=== PATIENT | female | born 1945 | race Caucasian/White ===

== ENCOUNTER 2019-02-19 12:09 | Inpatient (IN) ==
[2019-02-19] MEDS ORDERED: Morphine Sulfate 2 MG/ML SYRINGE IVP ONE (13:13)
--- NOTE | 2019-02-19 13:14 | Emergency Department Note ---
Disposition Clinical Impression: Hypokalemia, Hypomagnesemia Fracture of distal end of right tibia Qualifiers: Encounter type: initial encounter Fracture type: closed Fracture alignment: nondisplaced Qualified Code(s): S82.874A - Nondisplaced pilon fracture of right tibia, initial encounter for closed fracture Disposition: Admitted As Inpatient Condition: Fair Time of Disposition: 13:00 Extremity Problem HPI - General Chief complaint: ED Extremity Problem,Nontraumatic Stated complaint: RLE swelling, sent from [facility] Time Seen by Provider: 02/19/19 12:23 Source: family Limitations: other Nursing Notes Reviewed: Yes Vital Signs Reviewed: Yes - History of Present Illness HPI Narrative: 73-year-old female was sent to the emergency department with concern for right lower 70 pain. Patient had swelling and pain over her right lower extremity today. She saw her oncologist Dr. Rios, who sent her into the emergency department. Patient currently is on xarelto. She does have atrial fibrillation and has breast cancer which is in remission. She is never had a clot before. R eports that the right lower extremity is chronically deformed. No recent trauma to it per her report. Pain Scale: 0 - Related Data Home Medications Medication Instructions Recorded Confirmed Amlodipine [Amlodipine Besylate] 10 mg PO DAILY 03/19/15 02/19/19 Metoprolol [Lopressor] 12.5 mg PO BID 03/19/15 02/19/19 Multivit-Min/FA/Lycopen/Lutein 1 each PO DAILY 03/19/15 02/19/19 [Centrum Silver Tablet] Apixaban [Eliquis] 5 mg PO BID 12/06/16 02/19/19 Calcium Carbonate/Vitamin D3 1,250 each PO DAILY 12/24/16 02/19/19 [Calcium 500 mg Chewable Tablet] Phenytoin ER [Dilantin ER] 100 mg PO BID 05/26/17 02/19/19 Acetaminophen [Tylenol] 1,000 mg PO Q6HR PRN 09/07/17 02/19/19 Previous Rx's Medication Instructions Recorded Anastrozole [Arimidex] 1 mg PO DAILY #30 tablet 05/31/18 Allergies Allergy/AdvReac Type Severity Reaction Status Date / Time acetaminophen [From Vicodin] Allergy Rash Verified 02/19/19 12:13 aspirin Allergy Rash Verified 02/19/19 12:13 famotidine Allergy Rash Verified 02/19/19 12:13 hydrocodone [From Vicodin] Allergy Rash Verified 02/19/19 12:13 meperidine [From Demerol] Allergy Rash Verified 02/19/19 12:13 pantoprazole Allergy Rash Verified 02/19/19 12:13 tramadol Allergy Rash Verified 02/19/19 12:13 letrozole [From Femara] AdvReac Drowsy Verified 02/19/19 12:13 All systems ED: reviewed and negative except as stated. Review of Systems: As Per HPI Constitutional: Denies: fever Cardiovascular: Denies: chest pain Respiratory: Denies: dyspnea Gastrointestinal: Denies: abdominal pain Musculoskeletal: Reports: other (Right ankle and right lower extremity pain) Neurological: Denies: numbness, paresthesias Past Medical History - Past Medical History Attestation: Yes The following information was validated with the patient. Medical history: Reports: atrial fibrillation, cancer, CVA, hypertension, seizures Psychiatric history: Reports: no psych history - Social History Smoking Status: Former smoker Smokeless Tobacco Status: No Alcohol use: Reports: none Drug use: Reports: none Physical Exam - General Limitations: other General appearance: alert - Head Head exam: normocephalic - Eye Eye exam: Present: EOMI - ENT ENT exam: mucous membranes moist - Neck Neck exam: Present: trachea midline - Chest Chest inspection: Present: symmetric chest wall rise - Respiratory Respiratory exam: Present: normal lung sounds bilaterally. Absent: respiratory distress, accessory muscle use - Cardiovascular Cardiovascular exam: Present: regular rate, irregular rhythm - Abdominal Exam Abdominal exam: Present: soft, Non-Tender. Absent: distention, guarding, ezekiel ound, rigidity - Extremities Exam Extremities exam: Present: other (Right lower extremity appears deformed at the ankle, inverted, tenderness throughout palpation of the entire extremity. Pulses by Doppler. Good cap refill) Course Vital Signs Temperature 97.7 F 02/19/19 12:11 Pulse Rate 100 02/19/19 12:11 Respiratory Rate 16 02/19/19 12:11 Blood Pressure 170/80 02/19/19 12:11 O2 Sat by Pulse Oximetry 95 02/19/19 12:11 Temperature 97.9 F 02/19/19 20:16 Pulse Rate 110 02/19/19 20:16 Respiratory Rate 18 02/19/19 20:16 Blood Pressure 151/90 02/19/19 20:16 O2 Sat by Pulse Oximetry 96 02/19/19 20:16 Oxygen Delivery Oxygen Delivery Room Air Extremity Problem, Nontraumati - [facility] Narrative Medical decision making narrative: 72-year-old female presents emergency Department concern for right lower extremity swelling and pain. Patient has pulses that are obtainable by Doppler in her right lower extremity. There is a chronic ankle deformity right lower extremity around the ankle site. Obtaining plain films. Patient was in atrial fibrillation with RVR in the 90s to 140s. Obtain CT angiogram of the chest. Takes metoprolol. Patient was given 5 of metoprolol here in the emergency department. This helped out a heart rate. Patient had evidence of distal tibial fracture as well as anterior subluxation of her ankle. I spoke with our material preparation worker who stated that he he would follow p atient on floor. He stated this point the ankle and his current position as the deformity and the subluxation is most likely chronic. CT angiogram that was obtain I reveal any evidence of pulmonary embolism. Patient stable at time of admission. She was critically hypokalemic and we started replacement of 40 mEq of potassium. We also replenished the magnesium. Femur X-Ray 02/19/19 13:09 IMPRESSION: 1. Probable joint effusion. 2. No acute osseous abnormality on radiographs of the right femur. 3. Bones appear osteoporotic. 4. Mild osteoarthritis right hip and knee joints. Follow-up imaging recommended if pain persists or worsens following conservative management. D/ / Bob Gerard / Bob Gerard Interpreting Provider: Bob Gerard Foot X-Ray 02/19/19 13:09 IMPRESSION: 1. Incidentally noted is essentially nondisplaced fracture across the tibial malleolus. Correlate with radiographs right lower leg report. 2. Osteoporosis. 3. Technically limited study because of difficulty positioning the patient demonstrating no definite acute osseous abnormality of the right foot. Follow-up imaging recommended if pain persists or worsens following conservative management. D/ / Bob Gerard / Bob Gerard Interpreting Provider: Bob Gerard Pelvis X-Ray 02/19/19 13:09 IMPRESSION: 1. No acute abnormality involving the pelvis. 2. Bilateral osteoarthritis right greater than left. D/ / Mark Balderas MD / Mark Balderas MD Interpreting Provider: Mark Balderas MD Tibia/Fibula X-Ray 02/19/19 13:09 IMPRESSION: 1. Acute traumatic minimally displaced fracture of the anterior aspect of the distal tibia. I would recommend dedicated right ankle radiographs for further evaluation. D/ / Mark Balderas MD / Mark Balderas MD Interpreting Provider: Mark Balderas MD Ankle X-Ray 02/19/19 14:18 IMPRESSION: 1. Subtle nondisplaced oblique fracture of the distal right tibial metaphysis is somewhat obscured by the osteopenia. 2. Anterior subluxation of the tibiotalar joint. 3. Consider CT scan of the ankle for more detailed evaluation. D/ / Missael Smith MD / Missael Smith MD Interpreting Provider: Missael Smith MD Chest CTA 02/19/19 14:27 IMPRESSION: No evidence of pulmonary embolism or acute pulmonary abnormality. Changes of emphysema and mild interstitial lung disease. No active pleural disease. No evidence of CHF or pneumonia. RECOMMENDATIONS: Thyroid ultrasound. D/ / 02/19/2019 16:19:32 Rita Andrews MD / [email or web address] Interpreting Provider: Rita Andrews MD - Lab Data Result diagrams: 02/19/19 14:56 02/19/19 14:58 Lab Results 02/19/19 02/19/19 02/19/19 Range/Units 14:56 14:56 14:58 WBC 6.6 (4.3-11.1) K/mcL RBC 3.42 L (3.82-4.97) M/mcL Hgb 10.6 L D (11.5-15.4) g/dL Hct 33.2 L (35.3-44.9) % MCV 97.1 (83.0-100.0) fL MCH 31.0 (28.0-33.3) pg MCHC 31.9 (31.6-35.5) g/dL RDW 13.1 (11.5-14.5) % Plt Count 238 (140-400) K/mcL MPV 9.9 (9.4-12.4) fL Immature Gran % 0.2 (0-4) % Seg Neutrophils % 74.3 % Lymphocytes % 15.6 % Monocytes % 8.9 % Eosinophils % 0.5 % Basophils % 0.5 % Neutrophils # 4.9 (1.6-8.9) K/mcL Lymphocytes # 1.0 (0.6-4.6) K/mcL Monocytes # 0.6 (0.0-1.3) K/mcL Eosinophils # 0.0 (0.0-0.6) K/mcL Basophils # 0.0 (0.0-0.2) K/mcL Sodium 143 (136-145) mEq/L Potassium 2.4 L* D (3.5-5.1) mEq/L Chloride 117 H (98-107) mEq/L Carbon Dioxide 20 L (23-29) mEq/L BUN 8 (8-23) mg/dL Creatinine 0.26 L (0.60-1.20) mg/dL Est GFR ( Amer) > 60 (> 60) Est GFR (Non-Af Amer) > 60 (> 60) BUN/Creatinine Ratio 31 H (6-26) Glucose 89 (70-105) mg/dL Calculated Osmolality 294 (280-300) Lactic Acid (0.5-2.2) mmol/L Calcium 6.3 L (8.6-10.3) mg/dL Phosphorus 2.1 L (2.7-4.5) mg/dL Magnesium 1.2 L (1.6-2.6) mg/dL Troponin I < 0.03 (< 0.04) ng/mL B-Natriuretic Peptide (Less than 100) pg/mL 25-OH Vitamin D Total (30-80) ng/mL TSH 0.494 (0.340-5.600) mcIU/mL PTH Intact 23.5 (10.0-65.0) pg/ml Urine Color (Yellow) Urine Clarity (Clear) Urine pH (5.0-8.0) pH Units Ur Specific [place] (1.010-1.025) Urine Protein (Neg-Trace) mg/dL Urine Glucose (UA) (Normal) mg/dL Urine Ketones (Negative) mg/dL Urine Blood (Negative) Urine Nitrite (Negative) Urine Bilirubin (Negative) Urine Urobilinogen (Normal) mg/dL Ur Leukocyte Esterase (Negative) Urine Microscopic RBC (0-3) per hpf Urine Microscopic WBC (0-3) per hpf Ur Squamous Epith Cells (None-Few) per lpf Urine Bacteria (None-Few) per hpf Hyaline Casts (None-Few) per lpf Ur Culture Indicated? (NO) Phenytoin 3.4 L (10.0-20.0) mcg/mL 02/19/19 02/19/19 02/19/19 Range/Units 14:58 14:58 17:04 WBC (4.3-11.1) K/mcL RBC (3.82-4.97) M/mcL Hgb (11.5-15.4) g/dL Hct (35.3-44.9) % MCV (83.0-100.0) fL MCH (28.0-33.3) pg MCHC (31.6-35.5) g/dL RDW (11.5-14.5) % Plt Count (140-400) K/mcL MPV (9.4-12.4) fL Immature Gran % (0-4) % Seg Neutrophils % % Lymphocytes % % Monocytes % % Eosinophils % % Basophils % % Neutrophils # (1.6-8.9) K/mcL Lymphocytes # (0.6-4.6) K/mcL Monocytes # (0.0-1.3) K/mcL Eosinophils # (0.0-0.6) K/mcL Basophils # (0.0-0.2) K/mcL Sodium (136-145) mEq/L Potassium (3.5-5.1) mEq/L Chloride (98-107) mEq/L Carbon Dioxide (23-29) mEq/L BUN (8-23) mg/dL Creatinine (0.60-1.20) mg/dL Est GFR ( Amer) (> 60) Est GFR (Non-Af Amer) (> 60) BUN/Creatinine Ratio (6-26) Glucose (70-105) mg/dL Calculated Osmolality (280-300) Lactic Acid 0.7 (0.5-2.2) mmol/L Calcium (8.6-10.3) mg/dL Phosphorus (2.7-4.5) mg/dL Magnesium (1.6-2.6) mg/dL Troponin I (< 0.04) ng/mL B-Natriuretic Peptide 47 (Less than 100) pg/mL 25-OH Vitamin D Total (30-80) ng/mL TSH (0.340-5.600) mcIU/mL PTH Intact (10.0-65.0) pg/ml Urine Color Yellow (Yellow) Urine Clarity Cloudy A (Clear) Urine pH 7.5 (5.0-8.0) pH Units Ur Specific [place] > 1.030 H (1.010-1.025) Urine Protein Trace (Neg-Trace) mg/dL Urine Glucose (UA) Normal (Normal) mg/dL Urine Ketones Negative (Negative) mg/dL Urine Blood Large H (Negative) Urine Nitrite Negative (Negative) Urine Bilirubin Negative (Negative) Urine Urobilinogen Normal (Normal) mg/dL Ur Leukocyte Esterase Large H (Negative) Urine Microscopic RBC TNTC H (0-3) per hpf Urine Microscopic WBC TNTC H (0-3) per hpf Ur Squamous Epith Cells Moderate H (None-Few) per lpf Urine Bacteria Many H (None-Few) per hpf Hyaline Casts None Seen (None-Few) per lpf Ur Culture Indicated? YES A (NO) Phenytoin (10.0-20.0) mcg/mL 02/19/19 Range/Units 17:06 WBC (4.3-11.1) K/mcL RBC (3.82-4.97) M/mcL Hgb (11.5-15.4) g/dL Hct (35.3-44.9) % MCV (83.0-100.0) fL MCH (28.0-33.3) pg MCHC (31.6-35.5) g/dL RDW (11.5-14.5) % Plt Count (140-400) K/mcL MPV (9.4-12.4) fL Immature Gran % (0-4) % Seg Neutrophils % % Lymphocytes % % Monocytes % % Eosinophils % % Basophils % % Neutrophils # (1.6-8.9) K/mcL Lymphocytes # (0.6-4.6) K/mcL Monocytes # (0.0-1.3) K/mcL Eosinophils # (0.0-0.6) K/mcL Basophils # (0.0-0.2) K/mcL Sodium (136-145) mEq/L Potassium (3.5-5.1) mEq/L Chloride (98-107) mEq/L Carbon Dioxide (23-29) mEq/L BUN (8-23) mg/dL Creatinine (0.60-1.20) mg/dL Est GFR ( Amer) (> 60) Est GFR (Non-Af Amer) (> 60) BUN/Creatinine Ratio (6-26) Glucose (70-105) mg/dL Calculated Osmolality (280-300) Lactic Acid (0.5-2.2) mmol/L Calcium (8.6-10.3) mg/dL Phosphorus (2.7-4.5) mg/dL Magnesium (1.6-2.6) mg/dL Troponin I (< 0.04) ng/mL B-Natriuretic Peptide (Less than 100) pg/mL 25-OH Vitamin D Total 24 L (30-80) ng/mL TSH (0.340-5.600) mcIU/mL PTH Intact (10.0-65.0) pg/ml Urine Color (Yellow) Urine Clarity (Clear) Urine pH (5.0-8.0) pH Units Ur Specific [place] (1.010-1.025) Urine Protein (Neg-Trace) mg/dL Urine Glucose (UA) (Normal) mg/dL Urine Ketones (Negative) mg/dL Urine Blood (Negative) Urine Nitrite (Negative) Urine Bilirubin (Negative) Urine Urobilinogen (Normal) mg/dL Ur Leukocyte Esterase (Negative) Urine Microscopic RBC (0-3) per hpf Urine Microscopic WBC (0-3) per hpf Ur Squamous Epith Cells (None-Few) per lpf Urine Bacteria (None-Few) per hpf Hyaline Casts (None-Few) per lpf Ur Culture Indicated? (NO) Phenytoin (10.0-20.0) mcg/mL - EKG Data EKG attestation: Yes I reviewed and interpreted this EKG. EKG results narrative: 13:40 Heart rate 143 bpm, IA 133 ms, QRS duration 71 ms, QT 300 ms, left axis deviation. Atrial fibrillation with no ischemic ST changes. 14:40 Heart rate 170 bpm, no P waves, left axis deviation Atrial fibrillation with rate of 117. No ischemic ST changes.
[2019-02-19] MEDS ORDERED: 0.9 % Sodium Chloride 500 ML IVC STA (13:44)
--- NOTE | 2019-02-19 14:06 | Emergency Department Note ---
Disposition Clinical Impression: Hypokalemia, Hypomagnesemia Fracture of distal end of right tibia Qualifiers: Encounter type: initial encounter Fracture type: closed Fracture morphology: pilon Fracture alignment: nondisplaced Qualified Code(s): S82.874A - Nondisplaced pilon fracture of right tibia, initial encounter for closed fracture Disposition: Admitted As Inpatient Condition: Fair Referrals: NONE,PCP [Non-Partnered Physician] - Forms: ED Satisfaction Letter Time of Disposition: 17:00 General Adult HPI - General Chief complaint: ED Extremity Problem,Nontraumatic Stated complaint: RLE swelling, sent from [facility] Time Seen by Provider: 02/19/19 12:23 Source: family Limitations: other Nursing Notes Reviewed: Yes Vital Signs Reviewed: Yes - History of Present Illness Pain Scale: 0 - Related Data Home Medications Medication Instructions Recorded Confirmed Amlodipine [Amlodipine Besylate] 10 mg PO DAILY 03/19/15 02/19/19 Metoprolol [Lopressor] 12.5 mg PO BID 03/19/15 02/19/19 Multivit-Min/FA/Lycopen/Lutein 1 each PO DAILY 03/19/15 02/19/19 [Centrum Silver Tablet] Apixaban [Eliquis] 5 mg PO BID 12/06/16 02/19/19 Calcium Carbonate/Vitamin D3 1,250 each PO DAILY 12/24/16 02/19/19 [Calcium 500 mg Chewable Tablet] Phenytoin ER [Dilantin ER] 100 mg PO BID 05/26/17 02/19/19 Acetaminophen [Tylenol] 1,000 mg PO Q6HR PRN 09/07/17 02/19/19 Previous Rx's Medication Instructions Recorded Anastrozole [Arimidex] 1 mg PO DAILY #30 tablet 05/31/18 Allergies Allergy/AdvReac Type Severity Reaction Status Date / Time acetaminophen [From Vicodin] Allergy Rash Verified 02/19/19 12:13 aspirin Allergy Rash Verified 02/19/19 12:13 famotidine Allergy Rash Verified 02/19/19 12:13 hydrocodone [From Vicodin] Allergy Rash Verified 02/19/19 12:13 meperidine [From Demerol] Allergy Rash Verified 02/19/19 12:13 pantoprazole Allergy Rash Verified 02/19/19 12:13 tramadol Allergy Rash Verified 02/19/19 12:13 letrozole [From Femara] AdvReac Drowsy Verified 02/19/19 12:13 Constitutional: Denies: fever Cardiovascular: Denies: chest pain Respiratory: Denies: dyspnea Gastrointestinal: Denies: abdominal pain Musculoskeletal: Reports: other (Right ankle and right lower extremity pain) Neurological: Denies: numbness, paresthesias Past Medical History - Past Medical History Medical history: Reports: atrial fibrillation, cancer, CVA, hypertension, seizures Psychiatric history: Reports: no psych history - Social History Smoking Status: Former smoker Smokeless Tobacco Status: No Alcohol use: Reports: none Drug use: Reports: none Physical Exam - General Limitations: other General appearance: alert Course Vital Signs Temperature 97.7 F 02/19/19 12:11 Pulse Rate 100 02/19/19 12:11 Respiratory Rate 16 02/19/19 12:11 Blood Pressure 170/80 02/19/19 12:11 O2 Sat by Pulse Oximetry 95 02/19/19 12:11 Temperature 97.7 F 02/19/19 12:11 Pulse Rate 102 02/19/19 17:03 Respiratory Rate 17 02/19/19 17:03 Blood Pressure 154/89 02/19/19 17:03 O2 Sat by Pulse Oximetry 94 02/19/19 17:03 Oxygen Delivery Oxygen Delivery Room Air Medical Decision Making - Lab Data Result diagrams: 02/19/19 14:56 02/19/19 14:58 Lab Results 02/19/19 02/19/19 02/19/19 Range/Units 14:56 14:58 14:58 WBC 6.6 (4.3-11.1) K/mcL RBC 3.42 L (3.82-4.97) M/mcL Hgb 10.6 L D (11.5-15.4) g/dL Hct 33.2 L (35.3-44.9) % MCV 97.1 (83.0-100.0) fL MCH 31.0 (28.0-33.3) pg MCHC 31.9 (31.6-35.5) g/dL RDW 13.1 (11.5-14.5) % Plt Count 238 (140-400) K/mcL MPV 9.9 (9.4-12.4) fL Immature Gran % 0.2 (0-4) % Seg Neutrophils % 74.3 % Lymphocytes % 15.6 % Monocytes % 8.9 % Eosinophils % 0.5 % Basophils % 0.5 % Neutrophils # 4.9 (1.6-8.9) K/mcL Lymphocytes # 1.0 (0.6-4.6) K/mcL Monocytes # 0.6 (0.0-1.3) K/mcL Eosinophils # 0.0 (0.0-0.6) K/mcL Basophils # 0.0 (0.0-0.2) K/mcL Sodium 143 (136-145) mEq/L Potassium 2.4 L* D (3.5-5.1) mEq/L Chloride 117 H (98-107) mEq/L Carbon Dioxide 20 L (23-29) mEq/L BUN 8 (8-23) mg/dL Creatinine 0.26 L (0.60-1.20) mg/dL Est GFR ( Amer) > 60 (> 60) Est GFR (Non-Af Amer) > 60 (> 60) BUN/Creatinine Ratio 31 H (6-26) Glucose 89 (70-105) mg/dL Calculated Osmolality 294 (280-300) Lactic Acid 0.7 (0.5-2.2) mmol/L Calcium 6.3 L (8.6-10.3) mg/dL Magnesium 1.2 L (1.6-2.6) mg/dL Troponin I < 0.03 (< 0.04) ng/mL B-Natriuretic Peptide (Less than 100) pg/mL TSH 0.494 (0.340-5.600) mcIU/mL 02/19/19 Range/Units 14:58 WBC (4.3-11.1) K/mcL RBC (3.82-4.97) M/mcL Hgb (11.5-15.4) g/dL Hct (35.3-44.9) % MCV (83.0-100.0) fL MCH (28.0-33.3) pg MCHC (31.6-35.5) g/dL RDW (11.5-14.5) % Plt Count (140-400) K/mcL MPV (9.4-12.4) fL Immature Gran % (0-4) % Seg Neutrophils % % Lymphocytes % % Monocytes % % Eosinophils % % Basophils % % Neutrophils # (1.6-8.9) K/mcL Lymphocytes # (0.6-4.6) K/mcL Monocytes # (0.0-1.3) K/mcL Eosinophils # (0.0-0.6) K/mcL Basophils # (0.0-0.2) K/mcL Sodium (136-145) mEq/L Potassium (3.5-5.1) mEq/L Chloride (98-107) mEq/L Carbon Dioxide (23-29) mEq/L BUN (8-23) mg/dL Creatinine (0.60-1.20) mg/dL Est GFR ( Amer) (> 60) Est GFR (Non-Af Amer) (> 60) BUN/Creatinine Ratio (6-26) Glucose (70-105) mg/dL Calculated Osmolality (280-300) Lactic Acid (0.5-2.2) mmol/L Calcium (8.6-10.3) mg/dL Magnesium (1.6-2.6) mg/dL Troponin I (< 0.04) ng/mL B-Natriuretic Peptide 47 (Less than 100) pg/mL TSH (0.340-5.600) mcIU/mL Critical Care Time Critical Care Time: Yes Total Critical Care Time: 35 Attestation: Critical care performed: Time is exclusive of separately billable procedures. Time includes: direct patient care, patient reassessment, coordination of patient care, interpretation of data (laboratory data, radiology data, and respiratory data), review of patient's medical records, medical consultation and documentation of patient care. Procedures included in critical care time: Procedures excluded from critical care time: Attestation Statement - Attestation Attestation: I examined this patient and my medical decision-making was reviewed with the [facility] Physician. I agree with the documented findings, disposition and treatment plan as described except to the extent set forth below. Patient to the ED with a chief complaint of right leg pain. Patient was sent over from her cancer doctor today. She was there for a 6 month follow-up of visit. Patient has had pain and swelling for 3 days per her . She is nonverbal from a prior stroke. He states that a new physical therapist was trying to stand her today and he thinks that they injured her leg. On exam she has tenderness and swelling of the right foot. Swelling extends up into the young. Able to Doppler pulses in the foot. Tachycardic. Plan. Pain control and imaging. Patient does not have a distal tibia fracture. Placed in a splint by business technology architect. Hypokalemic. Hypomagnesemia. Replacing IV. Patient is admitted to medicine. Femur X-Ray 02/19/19 13:09 IMPRESSION: 1. Probable joint effusion. 2. No acute osseous abnormality on radiographs of the right femur. 3. Bones appear osteoporotic. 4. Mild osteoarthritis right hip and knee joints. Follow-up imaging recommended if pain persists or worsens following conservative management. D/ / Bob Gerard / Bob Gerard Interpreting Provider: Bob Gerard Foot X-Ray 02/19/19 13:09 IMPRESSION: 1. Incidentally noted is essentially nondisplaced fracture across the tibial malleolus. Correlate with radiographs right lower leg report. 2. Osteoporosis. 3. Technically limited study because of difficulty positioning the patient demonstrating no definite acute osseous abnormality of the right foot. Follow-up imaging recommended if pain persists or worsens following conservative management. D/ / Bob Gerard / Bob Gerard Interpreting Provider: Bob Gerard Pelvis X-Ray 02/19/19 13:09 IMPRESSION: 1. No acute abnormality involving the pelvis. 2. Bilateral osteoarthritis right greater than left. D/ / Mark Balderas MD / Mark Balderas MD Interpreting Provider: Mark Balderas MD Tibia/Fibula X-Ray 02/19/19 13:09 IMPRESSION: 1. Acute traumatic minimally displaced fracture of the anterior aspect of the distal tibia. I would recommend dedicated right ankle radiographs for further evaluation. D/ / Mark Balderas MD / Mark Balderas MD Interpreting Provider: Mark Balderas MD Ankle X-Ray 02/19/19 14:18 IMPRESSION: 1. Subtle nondisplaced oblique fracture of the distal right tibial metaphysis is somewhat obscured by the osteopenia. 2. Anterior subluxation of the tibiotalar joint. 3. Consider CT scan of the ankle for more detailed evaluation. D/ / Missael Smith MD / Missael Smith MD Interpreting Provider: Missael Smith MD Chest CTA 02/19/19 14:27 IMPRESSION: No evidence of pulmonary embolism or acute pulmonary abnormality. Changes of emphysema and mild interstitial lung disease. No active pleural disease. No evidence of CHF or pneumonia. RECOMMENDATIONS: Thyroid ultrasound. D/ / 02/19/2019 16:19:32 Rita Andrews MD / [email or web address] Interpreting Provider: Rita Andrews MD
[2019-02-19] MEDS ORDERED: Isovue-370 500 ML BOTTLE IVP ONE (14:27)
[2019-02-19 15:17] LABS: Basophils % 0.5 %; Eosinophils % 0.5 %; Hematocrit 33.2 % (35.3-44.9); Hemoglobin 10.6 g/dL (11.5-15.4); Immature Granulocytes % 0.2 % (0-4); Lymphocytes % 15.6 %; Mean Corpuscular HGB Conc 31.9 g/dL (31.6-35.5); Mean Corpuscular Volume 97.1 fL (83.0-100.0); Mean Platelet Volume 9.9 fL (9.4-12.4); Monocytes # 0.6 K/mcL (0.0-1.3); Monocytes % 8.9 %; Neutrophils # 4.9 K/mcL (1.6-8.9); Platelet Count 238 K/mcL (140-400); Red Blood Count 3.42 M/mcL (3.82-4.97); Red Cell Distribution Width 13.1 % (11.5-14.5); Segmented Neutrophils % 74.3 %; White Blood Count 6.6 K/mcL (4.3-11.1)
[2019-02-19] MEDS ORDERED: *HR* Metoprolol 5 MG/5 ML VIAL IVP ONE ×2 (15:20→22:22)
[2019-02-19 15:45] LABS: BUN/Creatinine Ratio 31 (6-26); Blood Urea Nitrogen 8 mg/dL (8-23); Calcium 6.3 mg/dL (8.6-10.3); Carbon Dioxide 20 mEq/L (23-29); Chloride 117 mEq/L (98-107); Glucose 89 mg/dL (70-105); Osmolality,Calculated 294 (280-300); Potassium 2.4 mEq/L (3.5-5.1); Sodium 143 mEq/L (136-145); Troponin I < 0.03 ng/mL (< 0.04); eGFR For African Americans > 60 (> 60); eGFR For Non-African Americans > 60 (> 60)
[2019-02-19] MEDS ORDERED: Potassium Chloride 40 MEQ, Lidocaine 1% 2 ML in 0.9 % Sodium Chloride 500 ML IVPB ONE (15:46)
[2019-02-19 16:08] LABS: Magnesium 1.2 mg/dL (1.6-2.6); Thyroid Stimulating Hormone 0.494 mcIU/mL (0.340-5.600)
[2019-02-19] MEDS ORDERED: Ondansetron ODT 4 MG TAB.RAPDIS SL PRN (17:03)
[2019-02-19] MEDS ORDERED: traMADol 50 MG TABLET PO PRN (17:03)
[2019-02-19] MEDS ORDERED: Naloxone 0.4 MG/ML INJ IVP PRN (17:03)
[2019-02-19] MEDS ORDERED: Calcium Gluconate 1gm/50mL 1 GM/50 ML BAG IVPB ONE (17:09)
[2019-02-19 17:13] LABS: Bilirubin,Urine Negative (Negative); Blood,Urine Large (Negative); Clarity,Urine Cloudy (Clear); Color,Urine Yellow (Yellow); Glucose,Urine (UA) Normal (Normal); Ketones,Urine Negative (Negative); Leukocyte Esterase,Urine Large (Negative); Nitrite,Urine Negative (Negative); PH,Urine 7.5 pH Units (5.0-8.0); Protein,Urine Trace mg/dL (Neg-Trace); Specific Gravity,Urine > 1.030 (1.010-1.025); Urobilinogen,Urine Normal (Normal)
[2019-02-19 17:15] LABS: Bacteria,Urine Many per hpf (None-Few); Hyaline Casts,Urine None Seen per lpf (None-Few); RBC,Urine TNTC per hpf (0-3); Squamous Epithelial Cell,Urine Moderate per lpf (None-Few); WBC,Urine TNTC per hpf (0-3)
[2019-02-19 17:29] LABS: Phenytoin (Dilantin) 3.4 mcg/mL (10.0-20.0)
[2019-02-19] MEDS ORDERED: Ringers Solution, Lactated 1,000 ML IVC SCH (17:30)
--- NOTE | 2019-02-19 17:34 | Internal Med History&Physical ---
Date of Encounter: 02/19/19 Time of Encounter: 17:28 Internal Medicine - H&P: HPI Chief complaint: edema of the right lower extr History of present illness: Ms. De La Fuente is a 73 year old female PMH of A.fib, CVA with expressive aphasia, right hemiplegia, stage 1 grade 1 tubular and invasive carcinoma of the right breasts. ER/DE +, her2/miah -. S/P lumpectomy and sentinel lymph node biopsy 07/02/14 followed by adjuvant XRT. Information obtained from ED documentation, patient with expressive aphasia, and no one was present in her room. I called [phone] but no one answered the phone. Patient was sent to the ED from the oncologist office after the patient was found to have right lower extremity edema. A skeletal survey of the lower extr was done and patient was found to have Acute traumatic minimally displaced fracture of the anterior aspect of the distal tibia. Also patient was found to be on A.fib with RvR, have hypokalemia, hypomagnesemia and hypocalcemia. During my evaluation patient in no distress. Past Med Surg Social Fam HX - Past Medical History Medical history: atrial fibrillation, cancer, CVA, hypertension, seizures Additional medical history: weakness, aphasia r/t CVA, breast cancer Psychiatric history: no psych history - Social History Smoking Status: Former smoker Smokeless Tobacco Status: No Alcohol use: none Drug use: none Internal Medicine - H&P: Meds Amlodipine [Amlodipine Besylate] 10 mg PO DAILY 03/19/15 [History] Metoprolol [Lopressor] 12.5 mg PO BID 03/19/15 [History] Multivit-Min/FA/Lycopen/Lutein [Centrum Silver Tablet] 1 each PO DAILY 03/19/15 [History] Apixaban [Eliquis] 5 mg PO BID 12/06/16 [History] Calcium Carbonate/Vitamin D3 [Calcium 500 mg Chewable Tablet] 1,250 each PO DAILY 12/24/16 [History] Phenytoin ER [Dilantin ER] 100 mg PO BID 05/26/17 [History] Acetaminophen [Tylenol] 1,000 mg PO Q6HR PRN 09/07/17 [History] Anastrozole [Arimidex] 1 mg PO DAILY #30 tablet 05/31/18 [Rx] Allergy/AdvReac Type Severity Reaction Status Date / Time acetaminophen [From Vicodin] Allergy Rash Verified 02/19/19 12:13 aspirin Allergy Rash Verified 02/19/19 12:13 famotidine Allergy Rash Verified 02/19/19 12:13 hydrocodone [From Vicodin] Allergy Rash Verified 02/19/19 12:13 meperidine [From Demerol] Allergy Rash Verified 02/19/19 12:13 pantoprazole Allergy Rash Verified 02/19/19 12:13 tramadol Allergy Rash Verified 02/19/19 12:13 letrozole [From Femara] AdvReac Drowsy Verified 02/19/19 12:13 ROS unobtainable: other (patient with expressive aphasia. ) All Systems PM: A 10-system review of systems was performed and is negative for pertinent findings except as documented above in the HPI. - Constitutional Vitals: Temp Pulse Resp BP Pulse Ox 97.7 F 102 17 154/89 94 02/19/19 12:11 02/19/19 17:03 02/19/19 17:03 02/19/19 17:03 02/19/19 17:03 Exam: Vitals: Reviewed General: Awake, in no distress. Skin: Normal color, no rash, no lesions. HEENT: EOM, pupils equal, round and reactive. Cardiovascular: Irregularly irregular, normal S1 & S2, no rubs, murmurs or gallops. Lungs: CTA b/l, no wheezes or crackles. Abdomen: Soft, non-tender, no rigidity. Extremities: right upper extremity contracted, strength in the right upper and lower extr 2/5. 5/5 in the left upper and lower extr. Neurological: expressive aphasia. Rest of the physical exam is non contributory Internal Med - H&P Results - Labs CBC & Chem 7: 02/19/19 14:56 02/19/19 14:58 Labs: Short CBC 02/19/19 Range/Units 14:56 WBC 6.6 (4.3-11.1) K/mcL Hgb 10.6 L D (11.5-15.4) g/dL Hct 33.2 L (35.3-44.9) % Plt Count 238 (140-400) K/mcL Neutrophils # 4.9 (1.6-8.9) K/mcL BMP 02/19/19 14:58 Sodium 143 Potassium 2.4 L* D Chloride 117 H Carbon Dioxide 20 L BUN 8 Creatinine 0.26 L Glucose 89 Calcium 6.3 L Cardiac Enzymes 02/19/19 Range/Units 14:58 Troponin I < 0.03 (< 0.04) ng/mL Urine 02/19/19 Range/Units 17:04 Urine Color Yellow (Yellow) Urine Clarity Cloudy A (Clear) Urine pH 7.5 (5.0-8.0) pH Units Ur Specific [place] > 1.030 H (1.010-1.025) Urine Protein Trace (Neg-Trace) mg/dL Urine Glucose (UA) Normal (Normal) mg/dL - Impressions ITS Impressions Femur X-Ray 02/19/19 13:09 IMPRESSION: 1. Probable joint effusion. 2. No acute osseous abnormality on radiographs of the right femur. 3. Bones appear osteoporotic. 4. Mild osteoarthritis right hip and knee joints. Follow-up imaging recommended if pain persists or worsens following conservative management. D/ / Bob Gerard / Bob Gerard Interpreting Provider: Bob Gerard Foot X-Ray 02/19/19 13:09 IMPRESSION: 1. Incidentally noted is essentially nondisplaced fracture across the tibial malleolus. Correlate with radiographs right lower leg report. 2. Osteoporosis. 3. Technically limited study because of difficulty positioning the patient demonstrating no definite acute osseous abnormality of the right foot. Follow-up imaging recommended if pain persists or worsens following conservative management. D/ / oBb Gerard / Bob Gerard Interpreting Provider: Bob Gerard Pelvis X-Ray 02/19/19 13:09 IMPRESSION: 1. No acute abnormality involving the pelvis. 2. Bilateral osteoarthritis right greater than left. D/ / Mark Balderas MD / Mark Balderas MD Interpreting Provider: Mark Balderas MD Tibia/Fibula X-Ray 02/19/19 13:09 IMPRESSION: 1. Acute traumatic minimally displaced fracture of the anterior aspect of the distal tibia. I would recommend dedicated right ankle radiographs for further evaluation. D/ / Mark Balderas MD / Mark Balderas MD Interpreting Provider: Mark Balderas MD Ankle X-Ray 02/19/19 14:18 IMPRESSION: 1. Subtle nondisplaced oblique fracture of the distal right tibial metaphysis is somewhat obscured by the osteopenia. 2. Anterior subluxation of the tibiotalar joint. 3. Consider CT scan of the ankle for more detailed evaluation. D/ / Missael Smith MD / Missael Smith MD Interpreting Provider: Missael Smith MD Chest CTA 02/19/19 14:27 IMPRESSION: No evidence of pulmonary embolism or acute pulmonary abnormality. Changes of emphysema and mild interstitial lung disease. No active pleural disease. No evidence of CHF or pneumonia. RECOMMENDATIONS: Thyroid ultrasound. D/ / 02/19/2019 16:19:32 Rita Andrews MD / yumiko Interpreting Provider: Rita Andrews MD - Diagnostic Studies Chest x-ray Status: image reviewed by me (tibial fracture. ) - Assessment and Plan (1) Hypocalcemia Current Visit: Yes Status: Acute (2) CVA (cerebral vascular accident) Current Visit: Yes Status: Chronic Qualifiers: CVA mechanism: unspecified Qualified Code(s): I63.9 - Cerebral infarction, unspecified (3) UTI (urinary tract infection) Current Visit: Yes Status: Acute Qualifiers: Urinary tract infection type: site unspecified Hematuria presence: without hematuria Qualified Code(s): N39.0 - Urinary tract infection, site not specified (4) DVT prophylaxis Current Visit: Yes Status: Chronic (5) Fracture of distal end of right tibia Current Visit: Yes Status: Acute Qualifiers: Encounter type: initial encounter Fracture type: closed Fracture alignment: nondisplaced Qualified Code(s): S82.874A - Nondisplaced pilon fracture of right tibia, initial encounter for closed fracture (6) Hypokalemia Current Visit: Yes Status: Acute (7) Hypomagnesemia Current Visit: Yes Status: Acute (8) Osteoporosis Current Visit: No Status: Chronic Qualifiers: Osteoporosis type: unspecified Presence of current pathological fracture: unspecified Qualified Code(s): M81.0 - Age-related osteoporosis without current pathological fracture - Summary of Assessment and Plan Summary of Assessment and Plan: Ms. De La Fuente is a 73 year old female PMH of A.fib, CVA with expressive aphasia, right hemiplegia, stage 1 grade 1 tubular and invasive carcinoma of the right breasts. ER/DE +, her2/miah -. S/P lumpectomy and sentinel lymph node biopsy 07/02/14 followed by adjuvant XRT. Patient brought to the hospital due to edema of the right lower extr. Assessment: 1. A.fib with RvR 2. Hypomagnesemia 3. Hypokalemia 4. Hypocalcemia 5. Acute traumatic minimally displaced fracture of the distal tibia. 6. Hx of CVA 7. Expressive aphasia 8. UTI (suspected) Plan: Patient found to be on A.fib with RvR on presentation, found to have multiple electrolytes abnormalities - electrolytes being replaced. - repeat BMP, mag and phosp 1 hour post electrolyte replacements - c/w telemetry monitoring - will resume home dose of metoprolol - c/w apixaban for secondary stroke prevention - Trench Pipe Layer Helper consulted, recommendations appreciated - NPO at midnight. - Tylenol 1gm Q6HR PRN for pain control - Lennie D, intact PtH, urine electrolytes ordered - ceftriaxone 1gm/IV daily - patient with mild acidosis. LR @75ml/hr x1 litter ordered - continue home dose of phenytoin - phenytoin level ordered - intermittent pneumatic compression for dvt prophylaxis - Time Spent With Patient Total time spent is greater than 50% in coordination of care (as documented) at patient's floor/unit and/or counseling patient: Greater than 35 minutes (45)
[2019-02-19 18:09] LABS: Phosphorous 2.1 mg/dL (2.7-4.5)
[2019-02-19] MEDS: cefTRIAXone 1,000 MG in Water for inj. (sterile) 10 ML IVP SCH (21:28)
[2019-02-19] MEDS: Apixaban 5 MG TABLET PO SCH (21:29)
[2019-02-19 22:19] LABS: BUN/Creatinine Ratio 22 (6-26); Blood Urea Nitrogen 9 mg/dL (8-23); Calcium 9.1 mg/dL (8.6-10.3); Carbon Dioxide 22 mEq/L (23-29); Chloride 109 mEq/L (98-107); Glucose 113 mg/dL (70-105); Osmolality,Calculated 287 (280-300); Potassium 4.5 mEq/L (3.5-5.1); Sodium 139 mEq/L (136-145); eGFR For African Americans > 60 (> 60); eGFR For Non-African Americans > 60 (> 60)
[2019-02-20] MEDS ORDERED: *HR* Metoprolol 5 MG/5 ML VIAL IVP ONE ×2 (02:26→06:05)
[2019-02-20 03:38] LABS: Basophils % 0.3 %; Eosinophils # 0.1 K/mcL (0.0-0.6); Eosinophils % 1.3 %; Hematocrit 38.2 % (35.3-44.9); Immature Granulocytes % 0.2 % (0-4); Lymphocytes # 1.9 K/mcL (0.6-4.6); Lymphocytes % 21.4 %; Mean Corpuscular HGB Conc 32.5 g/dL (31.6-35.5); Mean Corpuscular Hemoglobin 30.5 pg (28.0-33.3); Mean Corpuscular Volume 94.1 fL (83.0-100.0); Mean Platelet Volume 9.7 fL (9.4-12.4); Monocytes # 0.8 K/mcL (0.0-1.3); Monocytes % 9.3 %; Neutrophils # 5.8 K/mcL (1.6-8.9); Platelet Count 293 K/mcL (140-400); Red Blood Count 4.06 M/mcL (3.82-4.97); Red Cell Distribution Width 13.4 % (11.5-14.5); Segmented Neutrophils % 67.5 %; White Blood Count 8.6 K/mcL (4.3-11.1)
[2019-02-20 03:44] LABS: Hemoglobin 12.4 g/dL (11.5-15.4)
[2019-02-20 03:50] LABS: INR 1.2; Prothrombin Time 13.4 Seconds (9.4-12.1)
[2019-02-20 03:53] LABS: Activated Partial Thrombo Time 35.1 Seconds (26.0-36.0)
[2019-02-20 03:58] LABS: BUN/Creatinine Ratio 21 (6-26); Blood Urea Nitrogen 8 mg/dL (8-23); Calcium 8.6 mg/dL (8.6-10.3); Carbon Dioxide 22 mEq/L (23-29); Chloride 108 mEq/L (98-107); Glucose 101 mg/dL (70-105); Osmolality,Calculated 286 (280-300); Phosphorous 3.4 mg/dL (2.7-4.5); Potassium 4.1 mEq/L (3.5-5.1); Sodium 139 mEq/L (136-145); eGFR For African Americans > 60 (> 60); eGFR For Non-African Americans > 60 (> 60)
[2019-02-20] MEDS: Metoprolol XL (24 HR) Succ 25 MG TAB.ER.24H PO SCH ×2 (09:22→09:34)
[2019-02-20] MEDS: cefTRIAXone 1,000 MG in Water for inj. (sterile) 10 ML IVP SCH (09:22)
[2019-02-20] MEDS: Apixaban 5 MG TABLET PO SCH ×2 (09:22→20:08)
--- NOTE | 2019-02-20 11:43 | Internal Med Progress Note ---
Hospitalist Progress Note - Encounter Date of Encounter: 02/20/19 Time of Encounter: 11:40 - Subjective Interval History: I have seen and evaluated the patient at bedside. patient with expressive aphasia. denies chest pain, shortness of breath, nausea, vomiting or abdominal pain. - Exam Vitals: Temp Pulse Resp BP Pulse Ox 98.2 F 102 16 155/93 97 02/20/19 07:29 02/20/19 07:29 02/20/19 07:29 02/20/19 09:51 02/20/19 07:29 Exam: Vitals: Reviewed General: Awake, in no distress. Cardiovascular: Irregularly irregular, normal S1 & S2, no rubs, murmurs or gallops. Lungs: CTA b/l, no wheezes or crackles. Abdomen: Soft, non-tender, no rigidity. NABS in all 4 quadrants. Extremities: right upper extremity contracted, strength in the right upper and lower extr 2/5. 5/5 in the left upper and lower extr. Neurological: expressive aphasia. Rest of the physical exam is non contributory - Assessment and Plan (1) Hypocalcemia Current Visit: Yes Status: Resolved (2) CVA (cerebral vascular accident) Current Visit: Yes Status: Chronic (3) UTI (urinary tract infection) Current Visit: Yes Status: Acute (4) DVT prophylaxis Current Visit: Yes Status: Chronic (5) Fracture of distal end of right tibia Current Visit: Yes Status: Acute (6) Hypokalemia Current Visit: Yes Status: Resolved (7) Hypomagnesemia Current Visit: Yes Status: Resolved (8) Osteoporosis Current Visit: No Status: Chronic - Summary of Assessment and Plan Summary of Assessment and Plan: Ms. De La Fuente is a 73 year old female PMH of A.fib, CVA with expressive aphasia, right hemiplegia, stage 1 grade 1 tubular and invasive carcinoma of the right breasts. ER/PA +, her2/miah -. S/P lumpectomy and sentinel lymph node biopsy 07/02/14 followed by adjuvant XRT. Patient brought to the hospital due to edema of the right lower extr. Assessment: 1. A.fib with RvR 2. Hypomagnesemia (resolved) 3. Hypokalemia (resolved) 4. Hypocalcemia (resolved) 5. Acute traumatic minimally displaced fracture of the distal tibia. 6. Hx of CVA 7. Expressive aphasia 8. UTI (suspected) 9. Vitamin D deficiency Plan: HR sub-optimally controlled after electrolyte replacements - metroprolol increased to 75mg/PO daily - started on cardizem drip, titrated per protocol - HR remains uncontrolled, consider cardiology consult. - c/w apixaban for secondary stroke prevention - electrolytes being replaced. - EKG ordered - c/w telemetry monitoring - Unhairing Inspector consulted, called. Recommendations appreciated - c/w Tylenol 1gm Q6HR PRN for pain control - On ceftriaxone 1gm/IV daily - urine culture: incubating. - On phenytoin 100mg/PO BID - intermittent pneumatic compression for dvt prophylaxis Disposition: - Patient to remain in the hospital due to A.fib with RvR on a cerdizem drip. - Time Spent with Patient Total time spent is greater than 50% in coordination of care (as documented) at patient's floor/unit and/or counseling patient: Greater than 35 minutes (40) Plan of Care Discussed with: nurse (and patient's .) Internal Medicine: Result - Labs CBC & Chem 7: 02/20/19 03:24 02/20/19 03:24 Labs: Short CBC 02/19/19 02/20/19 Range/Units 14:56 03:24 WBC 6.6 8.6 (4.3-11.1) K/mcL Hgb 10.6 L D 12.4 D (11.5-15.4) g/dL Hct 33.2 L 38.2 (35.3-44.9) % Plt Count 238 293 (140-400) K/mcL Neutrophils # 4.9 5.8 (1.6-8.9) K/mcL BMP 02/19/19 02/19/19 02/20/19 14:58 21:20 03:24 Sodium 143 139 139 Potassium 2.4 L* D 4.5 D 4.1 Chloride 117 H 109 H 108 H Carbon Dioxide 20 L 22 L 22 L BUN 8 9 8 Creatinine 0.26 L 0.41 L 0.38 L Glucose 89 113 H 101 Calcium 6.3 L 9.1 8.6 Cardiac Enzymes 02/19/19 02/19/19 02/20/19 Range/Units 14:58 21:20 03:24 Troponin I < 0.03 < 0.03 < 0.03 (< 0.04) ng/mL Urine 02/19/19 Range/Units 17:04 Urine Color Yellow (Yellow) Urine Clarity Cloudy A (Clear) Urine pH 7.5 (5.0-8.0) pH Units Ur Specific [place] > 1.030 H (1.010-1.025) Urine Protein Trace (Neg-Trace) mg/dL Urine Glucose (UA) Normal (Normal) mg/dL - ABG Interpretation ABG results: PT/INR, D-dimer PT 13.4 Seconds (9.4-12.1) H 02/20/19 03:24 - Impressions Impressions Femur X-Ray 02/19/19 13:09 IMPRESSION: 1. Probable joint effusion. 2. No acute osseous abnormality on radiographs of the right femur. 3. Bones appear osteoporotic. 4. Mild osteoarthritis right hip and knee joints. Follow-up imaging recommended if pain persists or worsens following conservative management. D/ / Bob Gerard / Bob Gerard Interpreting Provider: Bob Gerard Foot X-Ray 02/19/19 13:09 IMPRESSION: 1. Incidentally noted is essentially nondisplaced fracture across the tibial malleolus. Correlate with radiographs right lower leg report. 2. Osteoporosis. 3. Technically limited study because of difficulty positioning the patient demonstrating no definite acute osseous abnormality of the right foot. Follow-up imaging recommended if pain persists or worsens following conservative management. D/ / Bob Gerard / Bob Gerard Interpreting Provider: Bob Gerard Pelvis X-Ray 02/19/19 13:09 IMPRESSION: 1. No acute abnormality involving the pelvis. 2. Bilateral osteoarthritis right greater than left. D/ / Mark Balderas MD / Mark Balderas MD Interpreting Provider: Mark Balderas MD Tibia/Fibula X-Ray 02/19/19 13:09 IMPRESSION: 1. Acute traumatic minimally displaced fracture of the anterior aspect of the distal tibia. I would recommend dedicated right ankle radiographs for further evaluation. D/ / Mark Balderas MD / Mark Balderas MD Interpreting Provider: Mark Balderas MD Ankle X-Ray 02/19/19 14:18 IMPRESSION: 1. Subtle nondisplaced oblique fracture of the distal right tibial metaphysis is somewhat obscured by the osteopenia. 2. Anterior subluxation of the tibiotalar joint. 3. Consider CT scan of the ankle for more detailed evaluation. D/ / Missael Smith MD / Missael Smith MD Interpreting Provider: Missael Smith MD Chest CTA 02/19/19 14:27 IMPRESSION: No evidence of pulmonary embolism or acute pulmonary abnormality. Changes of emphysema and mild interstitial lung disease. No active pleural disease. No evidence of CHF or pneumonia. RECOMMENDATIONS: Thyroid ultrasound. D/ / 02/19/2019 16:19:32 Rita Andrews MD / yumiko Interpreting Provider: Rita Andrews MD Consult Discharge Plan - Plan Referrals: Fer Roth MD [Primary Care Provider] - (2) CVA (cerebral vascular accident) Qualifiers: CVA mechanism: unspecified Qualified Code(s): I63.9 - Cerebral infarction, unspecified (3) UTI (urinary tract infection) Qualifiers: Urinary tract infection type: site unspecified Hematuria presence: without hematuria Qualified Code(s): N39.0 - Urinary tract infection, site not specified (5) Fracture of distal end of right tibia Qualifiers: Encounter type: initial encounter Fracture type: closed Fracture alignment: nondisplaced Qualified Code(s): S82.874A - Nondisplaced pilon fracture of right tibia, initial encounter for closed fracture (8) Osteoporosis Qualifiers: Osteoporosis type: unspecified Presence of current pathological fracture: unspecified Qualified Code(s): M81.0 - Age-related osteoporosis without current pathological fracture
--- NOTE | 2019-02-20 15:59 | Electrocardiograph Report ---
[place] [id number] Test Date: 2019-02-19 Pat Name: Zhane De La Fuente Department: [id number] Room: 2NE21 Gender: F [employer]: : 1945 Requested By: Jas Hinkle Order Number: [id number] Reading MD: Jose Manuel Mejia Measurements Intervals [place] Rate: 143 P: -78 UT: 133 QRS: -10 QRSD: 71 T: 25 QT: 300 QTc: 463 Interpretive Statements atrial fibrillation with rapid ventricular response Electronically Signed On 02-20-2019 15:57:51 EDT by Jose Manuel Mejia
[2019-02-20] MEDS ORDERED: Metoprolol XL (24 HR) Succ 25 MG TAB.ER.24H PO SCH (17:09)
[2019-02-21 01:54] LABS: BUN/Creatinine Ratio 19 (6-26); Blood Urea Nitrogen 7 mg/dL (8-23); Calcium 8.6 mg/dL (8.6-10.3); Carbon Dioxide 26 mEq/L (23-29); Chloride 103 mEq/L (98-107); Glucose 99 mg/dL (70-105); Magnesium 1.7 mg/dL (1.6-2.6); Osmolality,Calculated 284 (280-300); Potassium 3.7 mEq/L (3.5-5.1); Sodium 138 mEq/L (136-145); eGFR For African Americans > 60 (> 60); eGFR For Non-African Americans > 60 (> 60)
[2019-02-21] MEDS: cefTRIAXone 1,000 MG in Water for inj. (sterile) 10 ML IVP SCH (08:05)
[2019-02-21] MEDS: Apixaban 5 MG TABLET PO SCH ×2 (08:05→20:06)
[2019-02-21] MEDS: Metoprolol XL (24 HR) Succ 25 MG TAB.ER.24H PO SCH (08:05)
[2019-02-21] MEDS ORDERED: Metoprolol XL (24 HR) Succ 25 MG TAB.ER.24H PO SCH (09:00)
--- NOTE | 2019-02-21 11:49 | Podiatry Consult Note ---
Date of Encounter: 02/21/19 Time of Encounter: 10:00 Assessment and Plan (1) Fracture of distal end of right tibia Status: Acute ASSESSMENT: minimally displaced subtle fracture of the distal right tibia unknown etiology - likely related to weight from standing or slight trauma in the presence of osteoporosis no infection noted. closed fracture PLAN: Conservative management at this time- complete non weight bearing to RLE and application of posterior splint Will need appointment in office with 1-2 weeks after discharge, at which time imagining will be repeated- please make appointment prior to discharge Assessed at bedside. Ankle and foot deformity noted with flaccid movement of ankle Replaced posterior splint, cast padding, posterior splint, NARCISO. Proper alignment noted Will discuss more aggressive management if indicated on the outpatient basis. Family has hope that patient may eventually ambulate again however there is complete paralysis of the RLE Patient would need foot and ankle recon to provide proper realignment s/p CVA. Discussed in depth with Agreeable with treatment Foot X-Ray 02/19/19 13:09 IMPRESSION: 1. Incidentally noted is essentially nondisplaced fracture across the tibial malleolus. Correlate with radiographs right lower leg report. 2. Osteoporosis. 3. Technically limited study because of difficulty positioning the patient demonstrating no definite acute osseous abnormality of the right foot. Follow-up imaging recommended if pain persists or worsens following conservative management. D/ / Bob Gerard / Bob Gerard Interpreting Provider: Bob Gerard Tibia/Fibula X-Ray 02/19/19 13:09 IMPRESSION: 1. Acute traumatic minimally displaced fracture of the anterior aspect of the distal tibia. I would recommend dedicated right ankle radiographs for further evaluation. D/ / Mark Balderas MD / Mark Balderas MD Interpreting Provider: Mark Balderas MD Ankle X-Ray 02/19/19 14:18 IMPRESSION: 1. Subtle nondisplaced oblique fracture of the distal right tibial metaphysis is somewhat obscured by the osteopenia. 2. Anterior subluxation of the tibiotalar joint. 3. Consider CT scan of the ankle for more detailed evaluation. D/ / Missael Smith MD / Missael Smith MD Interpreting Provider: Missael Smith MD Qualifiers: Encounter type: initial encounter Fracture type: closed Fracture alignment: nondisplaced Qualified Code(s): S82.874A - Nondisplaced pilon fracture of right tibia, initial encounter for closed fracture History of Present Illness HPI: Ms. De La Fuente is a 73 year old female PMH of A.fib, CVA with expressive aphasia, right hemiplegia, invasive carcinoma of the right breast. Patient unable to provide history. at bedside to help with information. Patient was sent to the ED from the oncologist office after the patient was found to have right lower extremity edema. DVT was ruled out. imagining of the RLE was completed and patient found to have Acute traumatic minimally displaced fracture of the anterior aspect of the distal tibia. Patient was admitted related to afib RVR however we have been consulted for evaluation of the ankle. Patient was placed in posterior splint per the ED. Resting comfortably on arrival. reports unknown etilogy of the fracture. Reports patient has not been ambulatory since the stroke. States she has paralysis of the RLE. states he has his suspicions but PT has been working with the patient to work on standing and transfers to try to strengthen leg and he would say that either the ankle may have broke with standing or the [facility] optometric assistant may have hit it off of a corner or door frame with transfer in a wheelchair as patient often does not have her foot completely on the leg of the wheelchair. Patient unable to communicate any known trauma. States that the edema and brusing was noted after PT and the [facility] optometric assistant was at their house the day before. Patient confirms pain to foot and ankle by nodding however reports she continually complains of body pain. Unsure if pain to ankle started before or after injury. Denies any known fevers, chills, n/v or fls. Chronic deformity of foot and ankle since CVA. Past Med Surg Social Fam HX - Past Medical History Medical history: atrial fibrillation, cancer, CVA, hypertension, seizures Additional medical history: weakness, aphasia r/t CVA, breast cancer Psychiatric history: no psych history - Social History Smoking Status: Former smoker Smokeless Tobacco Status: No Alcohol use: none Drug use: none Medications and Allergies Multivit-Min/FA/Lycopen/Lutein [Centrum Silver Tablet] 1 tab PO DAILY 03/19/15 [History] Apixaban [Eliquis] 5 mg PO BID 12/06/16 [History] Phenytoin ER [Dilantin ER] 100 mg PO BID 05/26/17 [History] Anastrozole [Arimidex] 1 mg PO DAILY #30 tablet 05/31/18 [Rx] Amlodipine Besylate 10 mg PO QAM 02/20/19 [History] Acetaminophen [Tylenol] 1,000 mg PO Q8HR PRN #100 tablet 02/22/19 [Rx] Amoxicillin/Clavulanate [Augmentin] 500 mg PO BIDWM 5 Days #10 tablet 02/22/19 [Rx] Calcium Carbonate [Tums] 500 mg PO TID #100 tab.chew 02/22/19 [Rx] Cholecalciferol (D-3) [Vitamin D] 2,000 unit PO DAILY #60 tablet 02/22/19 [Rx] Metoprolol XL (24 HR) Succ [Toprol Xl] 75 mg PO DAILY #30 tab.er.24h 02/22/19 [Rx] Nitrofurantoin (BID) [Macrobid] 100 mg PO BID 5 Days #10 capsule 02/22/19 [Rx] Allergy/AdvReac Type Severity Reaction Status Date / Time acetaminophen [From Vicodin] Allergy Rash Verified 02/19/19 12:13 aspirin Allergy Rash Verified 02/19/19 12:13 famotidine Allergy Rash Verified 02/19/19 12:13 hydrocodone [From Vicodin] Allergy Rash Verified 02/19/19 12:13 meperidine [From Demerol] Allergy Rash Verified 02/19/19 12:13 pantoprazole Allergy Rash Verified 02/19/19 12:13 tramadol Allergy Rash Verified 02/19/19 12:13 letrozole [From Femara] AdvReac Drowsy Verified 02/19/19 12:13 All Systems Reviewed: as per HPI Physical Exam - Constitutional Vitals: Temp Pulse Resp BP Pulse Ox 99.1 F 98 18 128/99 96 02/21/19 06:50 02/21/19 06:50 02/21/19 06:50 02/21/19 06:50 02/21/19 06:50 Exam: Constitutional: awake, alert, follows commands at time. Signs yes and no VASCULAR: pulses palpable DP/PT. Cap refill <3 seconds. warm toes to tibia. No calf pain with manual compression NEUROLOGICAL: intact sensation to light and moderate touch MUSCULOSKELETAL: 0/5 muscle strength RLE. Flaccid ankle joint. inversion of rig ht foot and ankle joint noted as well as drop foot (present since cva) no open skin, no tenting, mild edema noted surrounding ankle. Reports pain along lateral mal. no appearance of infection. rigid movement to flexion of foot. Patient also reports severe pain with movement or palpation. limited exam SKIN: no skin breakdown, open lesions sores ulcerations or rashes noted. No appearance of infection to any tissue surrounding foot or ankle Results - Labs Result Diagrams: 02/22/19 01:43 02/22/19 01:43 Labs: Abnormal lab results RBC 3.42 M/mcL (3.82-4.97) L 02/19/19 14:56 Hgb 10.6 g/dL (11.5-15.4) L D 02/19/19 14:56 Hct 33.2 % (35.3-44.9) L 02/19/19 14:56 PT 13.4 Seconds (9.4-12.1) H 02/20/19 03:24 Potassium 2.4 mEq/L (3.5-5.1) L* D 02/19/19 14:58 Chloride 108 mEq/L (98-107) H 02/20/19 03:24 Carbon Dioxide 22 mEq/L (23-29) L 02/20/19 03:24 BUN 7 mg/dL (8-23) L 02/21/19 01:22 Creatinine 0.37 mg/dL (0.60-1.20) L 02/21/19 01:22 BUN/Creatinine Ratio 31 (6-26) H 02/19/19 14:58 Glucose 113 mg/dL (70-105) H 02/19/19 21:20 Calcium 6.3 mg/dL (8.6-10.3) L 02/19/19 14:58 Phosphorus 2.1 mg/dL (2.7-4.5) L 02/19/19 14:58 Magnesium 1.2 mg/dL (1.6-2.6) L 02/19/19 14:58 25-OH Vitamin D Total 24 ng/mL (30-80) L 02/19/19 17:06 Urine Clarity Cloudy (Clear) A 02/19/19 17:04 Ur Specific [place] > 1.030 (1.010-1.025) H 02/19/19 17:04 Urine Blood Large (Negative) H 02/19/19 17:04 Ur Leukocyte Esterase Large (Negative) H 02/19/19 17:04 Urine Microscopic RBC TNTC per hpf (0-3) H 02/19/19 17:04 Urine Microscopic WBC TNTC per hpf (0-3) H 02/19/19 17:04 Ur Squamous Epith Cells Moderate per lpf (None-Few) H 02/19/19 17:04 Urine Bacteria Many per hpf (None-Few) H 02/19/19 17:04 Ur Culture Indicated? YES (NO) A 02/19/19 17:04 Phenytoin 3.4 mcg/mL (10.0-20.0) L 02/19/19 14:58 All other labs normal. Consult Discharge Plan - Plan Instructions: Metoprolol (By mouth), Amoxicillin/Clavulanate Potassium (By mouth), Nitrofurantoin Combination (By mouth), Vitamin D (By mouth), Antacid, Calcium and Magnesium (By mouth), Urinary Tract Infection in Women (DC) Referrals: Fer Roth MD [Primary Care Provider] - 03/01/19 2:20 pm Nikolai Alves DPM [Partnered Physician] - 03/06/19 2:40 pm Prescriptions: Amoxicillin/Clavulanate [Augmentin] 500 mg PO BIDWM 5 Days #10 tablet Nitrofurantoin (BID) [Macrobid] 100 mg PO BID 5 Days #10 capsule Metoprolol XL (24 HR) Succ [Toprol Xl] 75 mg PO DAILY #30 tab.er.24h Calcium Carbonate [Tums] 500 mg PO TID #100 tab.chew Acetaminophen [Tylenol] 1,000 mg PO Q8HR PRN #100 tablet PRN Reason: Pain Cholecalciferol (D-3) [Vitamin D] 2,000 unit PO DAILY #60 tablet
--- NOTE | 2019-02-21 12:03 | Electrocardiograph Report ---
[place] [address] Test Date: 2019-02-19 Pat Name: Zhane De La Fuente Department: [id number] Room: 2NE21 Gender: F [employer]: : [id number] Requested By: Josue Grey Order Number: [id number] Reading MD: Lex Hernandez Measurements Intervals [place] Rate: 117 P: -49 TX: 166 QRS: -9 QRSD: 69 T: 29 QT: 331 QTc: 462 Interpretive Statements Sinus RHYTHM WITH PACS BASELINE ARTIFACT, REPEAT EKG BASELINE ARTIFACT COMPLICATES ACCURATE INTERPRETATION Electronically Signed On 02-21-2019 12:01:47 EDT by Lex Hernandez
[2019-02-21] MEDS: Cholecalciferol (D-3) 1,000 UNIT (25MCG) TABLET PO SCH (15:28)
--- NOTE | 2019-02-21 19:44 | Internal Med Progress Note ---
Hospitalist Progress Note - Encounter Date of Encounter: 02/21/19 Time of Encounter: 11:05 - Subjective Interval History: Ms De La Fuente was evaluated by the podiatry team considered no surgical intervention. She is minimally conversant status post CVA boyfriend for 20 years POA caregiver Hudson Smith [phone] that he gets a lot of help from home health and this was confirmed with case management team GEN: Denies fever, chills or malaise HEENT: Denies headache blurriness, or dysphagia RESP: Denies SOB or cough CV: Denies chest pain or palpitations GI: Denies Nausea, vomiting, diarrhea or constipation Reviewed current in hospital medications with modifications see orders Reviewed Routine labs - Exam Vitals: Temp Pulse Resp BP Pulse Ox 100.0 F H 85 16 145/74 96 02/21/19 17:07 02/21/19 17:07 02/21/19 17:07 02/21/19 17:07 02/21/19 17:07 Exam: GEN: NAD, A&O x 3, minimally conversant boyfriend by her bedside SKIN: [place] warm acyanotic not jaundice HEART: RRR, no murmurs LUNGS: CTA no wheeze or crackles, overall non labored ABDOMEN; Soft, non tender or distended, BS x 4 normactive EXT: No LE edema, left foot wrapped in Rinku, radial pulses 2+ PSYCH: Mood seems depressed and affect appears flat - Assessment and Plan (1) UTI (urinary tract infection) Current Visit: Yes Status: Acute Assessment and Plan: Continue ceftriaxone and await cultures and sensitivity so far gram-negative stone (2) Fracture of distal end of right tibia Current Visit: Yes Status: Acute Assessment and Plan: Was evaluated by podiatry team appreciate the input no surgical intervention. (3) Vitamin D deficiency Current Visit: Yes Status: Acute Assessment and Plan: With her history of osteoporosis we will supplement with 50,000 international units weekly (4) Osteoporosis Current Visit: Yes Status: Chronic Assessment and Plan: Noted on imaging patient will benefit from bisphosphonate on interim we will supplement vitamin D and calcium (5) Hypokalemia Current Visit: Yes Status: Resolved Assessment and Plan: Resolved (6) Hypomagnesemia Current Visit: Yes Status: Resolved Assessment and Plan: Resolved (7) Hypocalcemia Current Visit: Yes Status: Resolved Assessment and Plan: Resolved (8) CVA (cerebral vascular accident) Current Visit: Yes Status: Chronic Assessment and Plan: History of stroke with focal deficits continue to optimize medical management she is on upper accident, not on statin therapy but will defer to provide care physician (9) DVT prophylaxis Current Visit: Yes Status: Chronic Assessment and Plan: On apixaban - Time Spent with Patient Total time spent is greater than 50% in coordination of care (as documented) at patient's floor/unit and/or counseling patient: Internal Medicine: Result - Labs CBC & Chem 7: 02/20/19 03:24 02/21/19 01:22 Labs: BMP 02/21/19 01:22 Sodium 138 Potassium 3.7 Chloride 103 Carbon Dioxide 26 BUN 7 L Creatinine 0.37 L Glucose 99 Calcium 8.6 - ABG Interpretation ABG results: PT/INR, D-dimer PT 13.4 Seconds (9.4-12.1) H 02/20/19 03:24 Consult Discharge Plan - Plan Referrals: Fer Roth MD [Primary Care Provider] - Nikolai Alves DPM [Partnered Physician] - 03/06/19 2:40 pm _ (1) UTI (urinary tract infection) Qualifiers: Urinary tract infection type: site unspecified Hematuria presence: without hematuria Qualified Code(s): N39.0 - Urinary tract infection, site not specifie d (2) Fracture of distal end of right tibia Qualifiers: Encounter type: initial encounter Fracture type: closed Fracture alignment: nondisplaced Qualified Code(s): S82.874A - Nondisplaced pilon fracture of right tibia, initial encounter for closed fracture (4) Osteoporosis Qualifiers: Osteoporosis type: unspecified Presence of current pathological fracture: unspecified Qualified Code(s): M81.0 - Age-related osteoporosis without current pathological fracture (8) CVA (cerebral vascular accident) Qualifiers: CVA mechanism: unspecified Qualified Code(s): I63.9 - Cerebral infarction, unspecified
[2019-02-22 01:42] LABS: Phenytoin (Dilantin) Free <0.5 ug/mL (1.0-2.5)
[2019-02-22 02:24] LABS: Basophils % 0.3 %; Eosinophils # 0.2 K/mcL (0.0-0.6); Eosinophils % 1.9 %; Hematocrit 36.8 % (35.3-44.9); Hemoglobin 11.9 g/dL (11.5-15.4); Immature Granulocytes % 0.2 % (0-4); Lymphocytes # 1.9 K/mcL (0.6-4.6); Lymphocytes % 21.6 %; Mean Corpuscular HGB Conc 32.3 g/dL (31.6-35.5); Mean Corpuscular Volume 95.8 fL (83.0-100.0); Mean Platelet Volume 10.4 fL (9.4-12.4); Neutrophils # 5.5 K/mcL (1.6-8.9); Platelet Count 252 K/mcL (140-400); Red Blood Count 3.84 M/mcL (3.82-4.97); Red Cell Distribution Width 13.2 % (11.5-14.5); White Blood Count 8.6 K/mcL (4.3-11.1)
[2019-02-22 02:45] LABS: BUN/Creatinine Ratio 19 (6-26); Blood Urea Nitrogen 7 mg/dL (8-23); Calcium 8.8 mg/dL (8.6-10.3); Carbon Dioxide 28 mEq/L (23-29); Chloride 101 mEq/L (98-107); Glucose 103 mg/dL (70-105); Magnesium 1.8 mg/dL (1.6-2.6); Osmolality,Calculated 280 (280-300); Potassium 3.4 mEq/L (3.5-5.1); Sodium 136 mEq/L (136-145); eGFR For African Americans > 60 (> 60); eGFR For Non-African Americans > 60 (> 60)
[2019-02-22] MEDS ORDERED: amLODIPine 5 MG TABLET PO SCH (09:00)
[2019-02-22] MEDS ORDERED: NON-FORMULARY MEDICATION 1 EACH EACH (Calcium Carbonate/Vitamin D3 [Calcium 500 Mg Chewabl PO SCH (09:00)
[2019-02-22] MEDS: cefTRIAXone 1,000 MG in Water for inj. (sterile) 10 ML IVP SCH (09:27)
[2019-02-22] MEDS: Multivit/Ca/Min/Fe/FA 1 TAB TABLET PO SCH ×2 (09:28→09:29)
[2019-02-22] MEDS: Metoprolol XL (24 HR) Succ 25 MG TAB.ER.24H PO SCH (09:29)
[2019-02-22] MEDS: Apixaban 5 MG TABLET PO SCH (09:30)
[2019-02-22] MEDS: Cholecalciferol (D-3) 1,000 UNIT (25MCG) TABLET PO SCH (09:31)
--- NOTE | 2019-02-22 09:51 | Discharge Summary ---
- NOTES TO OUTPATIENT PROVIDER Notes to Outpatient Provider: Posthospital discharge status post fracture distal right tibia, UTI due to Escherichia coli and Proteus. Patient will benefit from outpatient physical therapy she may also benefit from initiating statin therapy given her history of stroke and also bisphosphonates given her osteoporosis Orders not resulted at time of discharge: Pending orders 02/19/19 14:58 Culture,Blood [BC] Stat 02/20/19 03:24 Phenytoin (Dilantin) Free AM 0400 Phenytoin Free and Total AM 0400 Date of Encounter: 02/22/19 Time of Encounter: 09:47 - Discharge Diagnosis (1) UTI (urinary tract infection) Priority: Primary Status: Acute Assessment and Plan: was treated with ceftriaxone and await cultures and sensitivity so far gram- negative stone- Escherichia coli sensitive to Macrobid and Proteus mirabilis sensitive to Augmentin and discharged 5 days of each Qualifiers: Urinary tract infection type: site unspecified Hematuria presence: without hematuria Qualified Code(s): N39.0 - Urinary tract infection, site not specified (2) Fracture of distal end of right tibia Priority: Primary Status: Acute Assessment and Plan: Was evaluated by podiatry team appreciate the input no surgical intervention. Qualifiers: Encounter type: initial encounter Fracture type: closed Fracture alignment: nondisplaced Qualified Code(s): S82.874A - Nondisplaced pilon fracture of right tibia, initial encounter for closed fracture (3) Vitamin D deficiency Priority: Primary Status: Acute Assessment and Plan: With her history of osteoporosis we will supplement with 50,000 international units weekly (4) Osteoporosis Priority: Secondary Status: Chronic Assessment and Plan: Noted on imaging patient will benefit from bisphosphonate on interim we will supplement vitamin D and calcium Qualifiers: Osteoporosis type: unspecified Presence of current pathological fracture: unspecified Qualified Code(s): M81.0 - Age-related osteoporosis without current pathological fracture (5) Hypokalemia Priority: Secondary Status: Resolved Assessment and Plan: Resolved (6) Hypomagnesemia Priority: Secondary Status: Resolved Assessment and Plan: Resolved (7) Hypocalcemia Priority: Secondary Status: Resolved Assessment and Plan: Patient is vitamin D deficient which we addressed as stated above continue calcium supplementation orally (8) DVT prophylaxis Priority: Secondary Status: Chronic Assessment and Plan: On apixaban, discharged today (9) History of stroke Priority: Secondary Status: Acute Assessment and Plan: History of stroke with focal deficits continue to optimize medical management she is on upper accident, not on statin therapy but will defer to provide care physician Hospital course: Ms. De La Fuente is a 73 year old female hospitalized status post displaced fracture of her right distal tibia he was evaluated by the podiatry was not deemed a surgical candidate. Patient also noted to have UTI cultures revealed Proteus and Escherichia coli she was initially treated with ceftriaxone and will be discharged home on Macrobid and Augmentin based on cultures and sensitivity. Discharge discussed with: patient, family, nurse, social work, case management - Time Spent with Patient Total time spent providing and/or coordinating discharge services:40 mins Specific discharge activities: Please take your medications as prescribed make sure you participate in outpatient physical therapy - Discharge Medications Prescriptions: New Metoprolol XL (24 HR) Succ [Toprol Xl] 75 mg PO DAILY #30 tab.er.24h Calcium Carbonate [Tums] 500 mg PO TID #100 tab.chew Cholecalciferol (D-3) [Vitamin D] 2,000 unit PO DAILY #60 tablet Amoxicillin/Clavulanate [Augmentin] 500 mg PO BIDWM 5 Days #10 tablet Nitrofurantoin (BID) [Macrobid] 100 mg PO BID 5 Days #10 capsule Continued Multivit-Min/FA/Lycopen/Lutein [Centrum Silver Tablet] 1 tab PO DAILY Apixaban [Eliquis] 5 mg PO BID Phenytoin ER [Dilantin ER] 100 mg PO BID Anastrozole [Arimidex] 1 mg PO DAILY #30 tablet Amlodipine Besylate 10 mg PO QAM Metoprolol [Lopressor] 12.5 mg PO BID Changed Acetaminophen [Tylenol] 1,000 mg PO Q8HR PRN #100 tablet PRN Reason: Pain Discontinued Calcium Carbonate/Vitamin D3 [Calcium 500 mg Chewable Tablet] 500 mg PO DAILY Home Medications: Multivit-Min/FA/Lycopen/Lutein [Centrum Silver Tablet] 1 tab PO DAILY 03/19/15 [History] Apixaban [Eliquis] 5 mg PO BID 12/06/16 [History] Phenytoin ER [Dilantin ER] 100 mg PO BID 05/26/17 [History] Anastrozole [Arimidex] 1 mg PO DAILY #30 tablet 05/31/18 [Rx] Amlodipine Besylate 10 mg PO QAM 02/20/19 [History] Metoprolol [Lopressor] 12.5 mg PO BID 02/20/19 [History] Acetaminophen [Tylenol] 1,000 mg PO Q8HR PRN #100 tablet 02/22/19 [Rx] Amoxicillin/Clavulanate [Augmentin] 500 mg PO BIDWM 5 Days #10 tablet 02/22/19 [Rx] Calcium Carbonate [Tums] 500 mg PO TID #100 tab.chew 02/22/19 [Rx] Cholecalciferol (D-3) [Vitamin D] 2,000 unit PO DAILY #60 tablet 02/22/19 [Rx] Metoprolol XL (24 HR) Succ [Toprol Xl] 75 mg PO DAILY #30 tab.er.24h 02/22/19 [Rx] Nitrofurantoin (BID) [Macrobid] 100 mg PO BID 5 Days #10 capsule 02/22/19 [Rx] Allergies/Adverse Reactions: Allergy/AdvReac Type Severity Reaction Status Date / Time acetaminophen [From Vicodin] Allergy Rash Verified 02/19/19 12:13 aspirin Allergy Rash Verified 02/19/19 12:13 famotidine Allergy Rash Verified 02/19/19 12:13 hydrocodone [From Vicodin] Allergy Rash Verified 02/19/19 12:13 meperidine [From Demerol] Allergy Rash Verified 02/19/19 12:13 pantoprazole Allergy Rash Verified 02/19/19 12:13 tramadol Allergy Rash Verified 02/19/19 12:13 letrozole [From Femara] AdvReac Drowsy Verified 02/19/19 12:13 Date of admission: 02/21/19 14:06 Primary care physician: Fer Roth MD Consults: 02/19/19 15:29 Consult to Podiatry [CONS] Stat Consulting Provider: Pod[facility] Reason for Consult: anterior ankle subluxation, distal tib fracture Time Notified: 15:30 Call Completed: Yes Discharging clinician: Erin Etienne Anticipated date of discharge: 02/22/19 - Constitutional Vitals: Temp Pulse Resp BP Pulse Ox 98 F 60 16 124/84 97 02/22/19 07:24 02/22/19 07:24 02/22/19 07:24 02/22/19 07:24 02/22/19 07:24 Exam: GEN: NAD, A&O x 3, minimally conversant boyfriend by her bedside SKIN: [place] warm acyanotic not jaundice HEART: RRR, no murmurs LUNGS: CTA no wheeze or crackles, overall non labored ABDOMEN; Soft, non tender or distended, BS x 4 normactive EXT: No LE edema, left foot wrapped in Rinku, radial pulses 2+ PSYCH: Mood seems depressed and affect appears flat - Patient Status Disposition: Home Health Service Condition: Fair Functional capacity at discharge: bed bound Overall status at discharge: patient is back to baseline - Discharge Instructions Instructions: Urinary Tract Infection in Women (DC) Follow Up With: Fer Roth MD [Primary Care Provider] - Nikolai Alves DPM [Partnered Physician] - 03/06/19 2:40 pm - Diet and Activity Activity: as per physical therapy Diet: low fat, low cholesterol, low salt diet
--- NOTE | 2019-02-22 10:12 | Physician Discharge Referral ---
Home Health/Hosp Referral Info Transfer to: Home Health Provider in Charge Post Discharge: PCP - Diagnosis (1) UTI (urinary tract infection) Priority: Primary Status: Acute (2) Fracture of distal end of right tibia Priority: Primary Status: Acute (3) Vitamin D deficiency Priority: Primary Status: Acute (4) Osteoporosis Priority: Secondary Status: Chronic (5) Hypokalemia Priority: Secondary Status: Resolved (6) Hypomagnesemia Priority: Secondary Status: Resolved (7) Hypocalcemia Priority: Secondary Status: Resolved (8) DVT prophylaxis Priority: Secondary Status: Chronic (9) History of stroke Priority: Secondary Status: Acute - Respiratory Orders Oxygen / L per min (2 L NC) Smoking Cessation: Smoking cessation has been advised. For more information, call the [employer] Quit Line at [phone]-NOW. - Diet/Nutrition Diet/Nutrition Orders: Cardiac - Activity Activity Orders: Up ad patrick - Services Needed Following services are medically necessary services: Nursing, Home Health Aide, Physical Therapy, Occupational Therapy, Speech Therapy - Transfer Medications Prescriptions: Amoxicillin/Clavulanate [Augmentin] 500 mg PO BIDWM 5 Days #10 tablet Nitrofurantoin (BID) [Macrobid] 100 mg PO BID 5 Days #10 capsule Metoprolol XL (24 HR) Succ [Toprol Xl] 75 mg PO DAILY #30 tab.er.24h Calcium Carbonate [Tums] 500 mg PO TID #100 tab.chew Acetaminophen [Tylenol] 1,000 mg PO Q8HR PRN #100 tablet PRN Reason: Pain Cholecalciferol (D-3) [Vitamin D] 2,000 unit PO DAILY #60 tablet Home Medications: Multivit-Min/FA/Lycopen/Lutein [Centrum Silver Tablet] 1 tab PO DAILY 03/19/15 [History] Apixaban [Eliquis] 5 mg PO BID 12/06/16 [History] Phenytoin ER [Dilantin ER] 100 mg PO BID 05/26/17 [History] Anastrozole [Arimidex] 1 mg PO DAILY #30 tablet 05/31/18 [Rx] Amlodipine Besylate 10 mg PO QAM 02/20/19 [History] Metoprolol [Lopressor] 12.5 mg PO BID 02/20/19 [History] Acetaminophen [Tylenol] 1,000 mg PO Q8HR PRN #100 tablet 02/22/19 [Rx] Amoxicillin/Clavulanate [Augmentin] 500 mg PO BIDWM 5 Days #10 tablet 02/22/19 [Rx] Calcium Carbonate [Tums] 500 mg PO TID #100 tab.chew 02/22/19 [Rx] Cholecalciferol (D-3) [Vitamin D] 2,000 unit PO DAILY #60 tablet 02/22/19 [Rx] Metoprolol XL (24 HR) Succ [Toprol Xl] 75 mg PO DAILY #30 tab.er.24h 02/22/19 [Rx] Nitrofurantoin (BID) [Macrobid] 100 mg PO BID 5 Days #10 capsule 02/22/19 [Rx] Allergies/Adverse Reactions: Allergy/AdvReac Type Severity Reaction Status Date / Time acetaminophen [From Vicodin] Allergy Rash Verified 02/19/19 12:13 aspirin Allergy Rash Verified 02/19/19 12:13 famotidine Allergy Rash Verified 02/19/19 12:13 hydrocodone [From Vicodin] Allergy Rash Verified 02/19/19 12:13 meperidine [From Demerol] Allergy Rash Verified 02/19/19 12:13 pantoprazole Allergy Rash Verified 02/19/19 12:13 tramadol Allergy Rash Verified 02/19/19 12:13 letrozole [From Femara] AdvReac Drowsy Verified 02/19/19 12:13 Certification: Further, I certify that my clinical findings support that this patient is homebound (i.e. absences from home require considerable and taxing effort and are for medical reasons or cheondoism services or infrequently or short duration when for other reasons) because: Homebound Reason: Leaving home requires considerable and taxing effort due to condition Attestation: My signature below is to certify that this patient is under my care and that I, or nurse practitioner, or a physician's facilities maintenance assistant working with me, has a [id number] encounter with this patient.
[2019-02-22] MEDS ORDERED: FLU Vac QV 19-20 (6Month+)/PF 0.5 ML SYRINGE IM ONE (10:29)
[2019-02-22 10:47] VITALS: BP 132/92
== END 2019-02-22 15:11 | disposition home health service (06) | DRG 343 ==
LOC: 2NENU 12:09 → EMEROOARM 12:09 → SUATTDRO 19:28 → 2NENU 20:00
PROVIDERS: ADMIT Student in an Organized Health Care Education/Training Program; ATTEND Pharmacist